=== PATIENT | male | born 1965 | race African-American/Black ===

== ENCOUNTER 2021-03-05 18:26 | Emergency (ER) | payer OTHER ==
[2021-03-05 18:38] VITALS: BP 141/83; PULSE 106; TEMP 98; BMI 27.3
[2021-03-05] MEDS ORDERED: KETOROLAC TROMETHAMINE 30 MG/1 ML VIAL IM ONE (18:53)
[2021-03-05] MEDS ORDERED: KETOROLAC TROMETHAMINE 30 MG/1 ML VIAL ONE (18:56)
== END 2021-03-05 19:10 | disposition home or self-care (01) ==
LOC: JERFT 18:26
PROC: 3E0233Z Introduction of Anti-inflammatory into Muscle, Percutaneous Approach (ICD-10-PCS; principal; 2021-03-05)
DX: S92.902A Unspecified fracture of left foot, initial encounter for closed fracture (principal); W22.8XXA Striking against or struck by other objects, initial encounter
CPT/HCPCS: 73630-TC-LT; 99284-25